=== PATIENT | female | born 1965 | race Caucasian/White ===

== ENCOUNTER 2018-08-11 09:39 | Day surgery (SDC) | payer BC ==
[2018-08-11] MEDS ORDERED: FENTAnyl 50 MCG/ML VIAL ×2 (10:33→10:54)
[2018-08-11] MEDS ORDERED: PROPOFOL 20 ML (10:33)
[2018-08-11] MEDS ORDERED: CEFAZOLIN 1 GM INJ (10:33)
[2018-08-11] MEDS ORDERED: NEOSTIGMINE 3 MG/3 ML SYRINGE (10:33)
[2018-08-11] MEDS ORDERED: ONDANSETRON 4 MG INJ (10:33)
[2018-08-11] MEDS ORDERED: GLYCOPYRROLATE 0.4 MG INJ (10:33)
[2018-08-11] MEDS ORDERED: ROPIVACAINE 0.5 % 30 ML VIAL (10:33)
[2018-08-11] MEDS ORDERED: DEXAMETHASONE 4 MG/ML 1 ML INJ (10:33)
[2018-08-11] MEDS ORDERED: ROCURONIUM 50 MG INJ (10:33)
[2018-08-11] MEDS ORDERED: MIDAZOLAM 1 MG/ML 2 ML INJ (10:33)
[2018-08-11] MEDS ORDERED: CEFAZOLIN 2 GM/50 ML (PMX) 50 ML IVPB (11:00)
[2018-08-11] MEDS ORDERED: BUPIVACAINE 0.5% (SDV) 30 ML, morphine SULFATE (PF) 8 MG, EPINEPHrine 0.3 MG, KETOROLAC... IRR (11:00)
[2018-08-11] MEDS ORDERED: TRANEXAMIC ACID 1,000 MG in DEXTROSE 5% 100 ML IVPB (11:00)
[2018-08-11] MEDS: DEXAMETHASONE 1 MG TAB PO (11:07)
[2018-08-11] MEDS: GABAPENTIN 300 MG CAP PO (11:07)
[2018-08-11] MEDS ORDERED: METOCLOPRAMIDE 10 MG INJ (11:11)
[2018-08-11] MEDS ORDERED: TOBRAMYCIN 0.3% 3.5 GM OPH OINT (11:37)
[2018-08-11] MEDS ORDERED: THROMBIN 5000 UNIT VIAL (11:37)
[2018-08-11] MEDS ORDERED: POLYMYXIN/BACITRACIN 1L IRRIG (11:37)
[2018-08-11] MEDS ORDERED: BUPIVACAINE 0.5% (SDV) 30 ML INJ (11:37)
[2018-08-11] MEDS ORDERED: CA CHLORIDE 10% 10 ML SYRINGE (11:37)
[2018-08-11] MEDS ORDERED: MEPERIDINE 25 MG INJ IV (12:00)
[2018-08-11] MEDS ORDERED: FENTAnyl 50 MCG/ML VIAL IV ×3 (12:00)
[2018-08-11] MEDS ORDERED: TRIMETHOBENZAMIDE 100 MG/ML VIAL IM (12:00)
[2018-08-11] MEDS ORDERED: LABETALOL HCL 20MG INJ IV (12:00)
[2018-08-11] MEDS ORDERED: DIPHENHYDRAMINE 50 MG INJ IV (12:00)
[2018-08-11] MEDS ORDERED: IPRATROPIUM (NEB) 0.5 MG/2.5 ML AMP HHN (12:00)
[2018-08-11] MEDS ORDERED: MIDAZOLAM 1 MG/ML 2 ML INJ IV (12:00)
[2018-08-11] MEDS ORDERED: HYDROmorphONE 1 MG/5 ML IV SYRINGE IV ×3 (12:00)
[2018-08-11] MEDS ORDERED: ALBUTEROL 0.083% (NEB) 2.5 MG/3 ML AMP HHN (12:00)
[2018-08-11] MEDS ORDERED: ONDANSETRON 4 MG INJ IV (12:00)
[2018-08-11] MEDS ORDERED: EPHEDrine SULFATE 50 MG/5 ML SYG IV (12:00)
[2018-08-11] MEDS ORDERED: OXYCODONE/ACETAMINOPHEN (5/325) TAB PO ×2 (12:00)
[2018-08-11] MEDS: hydrALAzine 20 MG INJ IV (13:41)
== END 2018-08-11 16:43 | disposition home or self-care (01) ==
LOC: REC 09:39 → SDS 09:39
DX: E11.9 Type 2 diabetes mellitus without complications (principal); T84.098A Other mechanical complication of other internal joint prosthesis, initial encounter; Y79.8 Miscellaneous orthopedic devices associated with adverse incidents, not elsewhere classified
CPT/HCPCS: 23473; 82962; 86850; 86900; 86901; 86999; 87070; 93005